=== PATIENT | female | born 1960 | race American Indian/Alaskan Native ===

== ENCOUNTER 2017-01-09 17:40 | Emergency (ER) | payer MEDICAID ==
--- NOTE | 2017-01-09 21:35 | Emergency Department Report ---
ED General Adult HPI - General Chief complaint: High BP Stated complaint: ELEVATED BP/HEADACHE/DIZZINESS Time Seen by Provider: 01/09/17 21:24 Source: patient Mode of arrival: Ambulatory Limitations: No Limitations - History of Present Illness Initial comments: This is a 56-year-old female. She is previously unknown to me. She has follow- up on Saturday with an outpatient primary care doctor. She reports a past medical history of hypertension/elevated blood pressure. Has been off of her medications for years. Doesn't recall what medication she was on. She has also seen cardiology in the past, Dr. Almodovar Patient presents to the ER complaining of intermittent nasal bleeding, intermittent headaches, intermittent dizziness, and hypertension. Symptoms have been present for the past month. The headaches are throbbing. They are intermittent. They are not sudden or thunderclap in nature. They have been going on for "quite a while." There is no neck pain, there is no neck trauma, there is no recent chiropractic manipulation. Patient also describes intermittent black spots in her eyes, which have since resolved. She also described intermittent nasal bleeding, which is not related to trauma or cocaine use. She came in today because she went to an outpatient pharmacy, was found to have elevated blood pressure, and was sent to the ER for further use. She has no chest pain or shortness of breath. She has no ataxia. She has no extremity weakness. She has no extremity numbness. -: Gradual Location: head Radiation: non-radiation Severity scale (0 -10): 4 Consistency: intermittent Improves with: none Worsens with: none Associated Symptoms: headaches. denies: confusion, chest pain, cough, diaphoresis, fever/chills, loss of appetite, malaise, nausea/vomiting, rash, shortness of breath, syncope, weakness - Related Data Previous Rx's Medication Instructions Recorded Last Taken Type amLODIPine [Norvasc] 5 mg PO DAILY #30 tab 01/10/17 Unknown Rx Allergies Allergy/AdvReac Type Severity Reaction Status Date / Time No Known Allergies Allergy Unverified 01/09/17 18:26 ED Review of Systems ROS: Stated complaint: ELEVATED BP/HEADACHE/DIZZINESS Other details as noted in HPI Constitutional: denies: fever Eyes: denies: eye discharge ENT: epistaxis Respiratory: see HPI. denies: cough, shortness of breath Cardiovascular: denies: chest pain Gastrointestinal: denies: abdominal pain Genitourinary: as per HPI Musculoskeletal: as per HPI Skin: as per HPI Neurological: headache. denies: abnormal gait Psychiatric: as per HPI ED Past Medical Hx - Medications Home Medications: Home Medications Medication Instructions Recorded Confirmed Last Taken Type amLODIPine [Norvasc] 5 mg PO DAILY #30 tab 01/10/17 Unknown Rx ED Physical Exam - General Limitations: No Limitations General appearance: alert, in no apparent distress - Head Head exam: Present: atraumatic, normocephalic - Eye Eye exam: Present: normal appearance, PERRL, EOMI. Absent: nystagmus - ENT ENT exam: Present: normal exam, normal orophraynx, mucous membranes moist, normal external ear exam, other (no obvious bleeding or lesions noted intranasally. Negative nasal septal hematoma.) - Neck Neck exam: Present: normal inspection, full ROM. Absent: tenderness, meningismus - Respiratory Respiratory exam: Present: normal lung sounds bilaterally. Absent: respiratory distress, wheezes, rales, rhonchi, stridor, chest wall tenderness - Cardiovascular Cardiovascular Exam: Present: regular rate, normal rhythm, normal heart sounds. Absent: bradycardia, tachycardia, irregular rhythm, systolic murmur, diastolic murmur, rubs, gallop - GI/Abdominal GI/Abdominal exam: Present: soft, normal bowel sounds. Absent: distended, tenderness, guarding, rebound, rigid, pulsatile mass - Extremities Exam Extremities exam: Present: normal inspection, full ROM, normal capillary refill. Absent: tenderness, pedal edema, joint swelling, calf tenderness - Back Exam Back exam: Present: normal inspection, full ROM. Absent: tenderness, CVA tenderness (R), CVA tenderness (L), muscle spasm, paraspinal tenderness, vertebral tenderness - Neurological Exam Neurological exam: Present: alert, oriented X3, normal gait (normal gait. Normal tandem gait. No past pointing. Normal [id number]. Negative Romberg.) , other (Extraocular movements intact. Tongue midline. No facial droop. Facial sensation intact to light touch in the V1, V2, V3 distribution bilaterally. 5 and 5 strength in 4 extremities.. Sensation is intact to light touch in 4 extremities.). Absent: motor sensory deficit - Psychiatric Psychiatric exam: Present: normal affect, normal mood - Skin Skin exam: Present: warm, dry, intact, normal color. Absent: rash ED Course Vital Signs 01/09/17 01/09/17 01/09/17 18:26 21:22 22:00 Temperature 98.8 F Pulse Rate 98 H 96 H 94 H Respiratory 20 18 18 Rate Blood Pressure 190/129 Blood Pressure 179/103 172/100 [Left] O2 Sat by Pulse 100 100 100 Oximetry 01/09/17 01/10/17 01/10/17 22:40 00:00 00:47 Temperature Pulse Rate 92 H 91 H Respiratory 18 16 Rate Blood Pressure 198/102 Blood Pressure 195/107 [Left] O2 Sat by Pulse 100 Oximetry 01/10/17 01/10/17 01/10/17 01:00 01:19 01:20 Temperature Pulse Rate 92 H 90 90 Respiratory 18 18 18 Rate Blood Pressure 171/94 Blood Pressure 190/116 176/99 176/99 [Left] O2 Sat by Pulse 99 99 100 Oximetry 01/10/17 01/10/17 01/10/17 01:30 02:00 02:30 Temperature Pulse Rate 91 H 90 90 Respiratory 18 Rate Blood Pressure 164/93 164/93 Blood Pressure 156/83 [Left] O2 Sat by Pulse 100 Oximetry 01/10/17 01/10/17 02:31 03:00 Temperature Pulse Rate 90 90 Respiratory 18 16 Rate Blood Pressure Blood Pressure 147/86 148/84 [Left] O2 Sat by Pulse 100 99 Oximetry - Reevaluation(s) Reevaluation #1: 01/09/17 21:49 Differential diagnosis: Noncompliance with medication, uncontrolled hypertension , hypertensive retinopathy, arterial insufficiency Assessment and plan: 56-year-old female with resolved nasal bleeding, nonspecific headache for the past month, noncompliant with blood pressure medication, with resolved headache, nasal bleeding, and black spots in the eye. She complained of intermittent dizziness, which she describes as a sensation of feeling "woozy." She has a GCS of 15, with an NIH score of 0, and has a benign and normal neurologic exam, including a complete lack of cerebellar/posterior circulation signs. In terms of visual acuity, the patient is able to read at a close distance, finger count, has color perception, and has no obvious visual field deficits. Currently her blood pressure is 179/103. She does not have a headache at this time. She is follow-up with her primary care doctor on Saturday. I'm reluctant to further decrease her blood pressure at this time, given that it is most likely chronically elevated, and I would not want to disrupt her autoregulation curve. While I highly doubt acute or occult arterial disease, given her poor compliance with blood pressure medication and her nonspecific symptoms, we will obtain a CT scan of the head, and a CT angiogram of the head and neck. She does have follow-up on Saturday with a primary care doctor, so her laboratory studies and imaging are unremarkable, I would feel comfortable discharging her to follow up with a primary care doctor. Reevaluation #2: 01/10/17 00:[address] scan of the brain demonstrates old lacunar infarct. 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 The neck measures 4 mm in diameter. No impending rupture as on CT. Patient is resting comfortably. Again, her headache does not clinically sound consistent with subarachnoid hemorrhage. Her blood pressure is somewhat elevated. The images were transmitted to [facility], and I discussed the case with the specialists, Dr. Coyne. He recommends a goal discharge of 160/104 blood pressure, recommends the patient follow up next week in the neuro endovascular clinic. This was relayed to the patient. He indicates that any antihypertensive agent would be appropriate at this time. Reevaluation #3: 01/10/17 02:46 patient has been observed in the ER for a prolonged period of time. Her blood pressure is improved. repeat neuro exam unchanged and unremarkable. she will be discharged with instructions to follow up with outpatient neuro endovascular, primary care. I will empirically start her on amlodipine. The importance of close outpatient follow-up was emphasized to the patient. ED Medical Decision Making - Lab Data Result diagrams: 01/09/17 21:51 01/09/17 21:51 Vital Signs 01/09/17 01/09/17 18:26 21:22 Temperature 98.8 F Pulse Rate 98 H 96 H Respiratory 20 18 Rate Blood Pressure 190/129 Blood Pressure 179/103 [Left] O2 Sat by Pulse 100 100 Oximetry - EKG Data 01/09/17 21:52 Normal sinus, 83 bpm, normal intervals, normal axis, poor R-wave progression, abnormal EKG, not morphologically consistent with STEMI, there is no prior EKG available for comparison. - Radiology Data Radiology results: report reviewed, image reviewed Critical care attestation.: If time is entered above; I have spent that time in minutes in the direct care of this critically ill patient, excluding procedure time. ED Disposition Clinical Impression: Headache Disposition: DISCHARGED TO HOME OR SELFCARE Is pt being admited?: No Does the pt Need Aspirin: No Condition: Stable Instructions: Hypertension (ED) Additional Instructions: Take the blood pressure medication as directed. Follow up with the [place] neuro endovascular clinic within the next week. The phone number is [phone]. I have discussed her case with the specialist, Dr. Coyne. Take the blood pressure medication as directed. Return to the ER right away with sudden or thunderclap headache, neck pain, neck stiffness, chest pain, shortness of breath, extremity weakness, extremity numbness. Prescriptions: amLODIPine [Norvasc] 5 mg PO DAILY #30 tab Referrals: CELESTE ANDERSON MD [Primary Care Provider] - 3-5 Days
[2017-01-09] MEDS ORDERED: NACL 0.9% 1000 ML 1,000 ML IV ONE (21:48)
[2017-01-09 22:00] LABS: Mean Corpuscular HGB Conc 30 % (30-34); Mean Corpuscular Volume 72 fl (79-97); Platelet Count 267 K/mm3 (140-440); Red Blood Count 4.87 M/mm3 (3.65-5.03); Red Cell Distribution Width 19.3 % (13.2-15.2)
--- NOTE | 2017-01-09 22:02 | Cat Scan Report ---
FINAL REPORT PROCEDURE: CT HEAD/BRAIN WO CON TECHNIQUE: Computerized tomography of the head was performed without contrast material. HISTORY: headache htn COMPARISON: No prior studies are available for comparison. FINDINGS: Skull and scalp: Normal. Paranasal sinuses: Normal. Ventricles and subarachnoid spaces: Normal. Cerebrum: No evidence of hemorrhage, acute infarction or mass. There is an old lacunar infarct defect in the anterior limb of the left internal capsule. Cerebellum and brainstem: No evidence of hemorrhage, acute infarction or mass. Vasculature: Normal. Comments: None. IMPRESSION: There is no acute intracranial abnormality including hemorrhage, edema, mass, mass effect or midline shift. There is an old lacunar infarct defect in the anterior limb of the left internal capsule.
[2017-01-09 22:04] LABS: Hematocrit 34.8 % (30.3-42.9); Hemoglobin 10.5 gm/dl (10.1-14.3); Mean Corpuscular Hemoglobin 22 pg (28-32)
[2017-01-09 22:24] LABS: Anion Gap 19 mmol/L; BUN/Creatinine Ratio 14.28; Blood Urea Nitrogen 10 mg/dL (7-17); Calcium 9.2 mg/dL (8.4-10.2); Carbon Dioxide 25 mmol/L (22-30); Chloride 100.2 mmol/L (98-107); Glucose 90 mg/dL (65-100); Sodium 140 mmol/L (137-145)
[2017-01-09 22:49] LABS: Bilirubin,Urine NEG (Negative); Blood,Urine NEG (Negative); Ketones,Urine NEG (Negative); Leukocyte Esterase,Urine SM (Negative); Mucus,Urine 3+ /HPF; Nitrite,Urine NEG (Negative); Urobilinogen,Urine < 2.0 mg/dL (<2.0)
--- NOTE | 2017-01-10 00:10 | Cat Scan Report ---
FINAL REPORT PROCEDURE: CT ANGIO HEAD TECHNIQUE: Computerized tomographic angiography of the head was performed after the IV injection of iodinated nonionic contrast including image processing. The image data was postprocessed using 2-dimensional multiplanar reformatted (MPR) and 3-dimensional (MIP and/or volume rendered) techniques. HISTORY: shaw htn COMPARISON: CT of the head 01/09/2017 FINDINGS: There is an aneurysm of the cavernous portion of the left internal carotid artery. This measures 12 millimeters in diameter. The neck measures 4 millimeters in diameter. Intracranial arteries are otherwise unremarkable. The middle and anterior cerebral artery branches are patent and normal in caliber. The anterior communicating artery is patent. Vertebral arteries are patent and normal in caliber. Basilar artery is small in caliber but patent. The posterior cerebral arteries are primarily supplied by internal carotid arteries. This is a normal variation. The dural sinuses are patent. There is no intracranial arterial stenosis or thrombosis or dissection. There is no vascular malformation. 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 This measures 12 millimeters in diameter. The neck measures 4 millimeters in diameter. There is no evidence of thrombosis or rupture. Remainder of the examination is unremarkable.
[2017-01-10] MEDS ORDERED: APRESOLINE IV ONE (00:41)
[2017-01-10] MEDS: APRESOLINE IV PRN ×3 (01:00→02:30)
--- NOTE | 2017-01-10 01:07 | Cat Scan Report ---
FINAL REPORT PROCEDURE: CT ANGIO NECK TECHNIQUE: Computerized tomographic angiography of the neck was performed after the IV injection of iodinated nonionic contrast including image processing. The image data was postprocessed using 2-dimensional multiplanar reformatted (MPR) and 3-dimensional (MIP and/or volume rendered) techniques. HISTORY: shaw htn COMPARISON: No prior studies are available for comparison. Note: Assessment of carotid artery stenosis is based on measurement of the distal internal carotid artery diameter as the denominator for stenosis calculations and the [place] Symptomatic Carotid Endarterectomy Trial (NASCET) stenosis criteria . CPT 3100F FINDINGS: Sinuses: Normal . Non vascular cervical structures: No significant abnormality . Aortic arch: Normal . Right carotid artery: There is calcified plaque at the right carotid bulb. There is no stenosis.. Left carotid artery: Normal . Vertebral arteries: Normal . There is an incidental 3 millimeter hypodense nodule or cyst the left thyroid gland. IMPRESSION: There is no carotid stenosis, thrombosis or dissection. The vertebral arteries are patent and normal in caliber.
[2017-01-10 04:37] VITALS: BP 148/84
== END 2017-01-10 03:10 | disposition home or self-care (01) ==
LOC: ED 17:40
DX: R51 Headache (principal)
CPT/HCPCS: 36415; 70450; 70496; 70498; 80048; 81001; 85027; 93005; 93010; 96361; 96374; 96376; 99284; J0360; J7030; Q9967

== ENCOUNTER 2018-07-02 15:57 | Emergency (ER) | payer SELFPAY ==
[2018-07-02] MEDS ORDERED: CATAPRES PO ONE (16:50)
--- NOTE | 2018-07-02 16:50 | Emergency Department Report ---
ED General Adult HPI - General Chief complaint: High BP Stated complaint: BP CHECK Time Seen by Provider: 07/02/18 16:34 Source: patient Mode of arrival: Ambulatory Limitations: No Limitations - History of Present Illness Initial comments: Patient is a 58-year-old female past medical history hypertension been off of her medications roughly 1 month who is here for blood pressure control. Patient states he has a minor headache this morning with some nausea which is resolved currently. Patient is has a history of taking lisinopril 20 mg daily. Patient states that she has no chest pain shortness of breath or focal neurological deficit at this time. - Related Data Previous Rx's Medication Instructions Recorded Last Taken Type amLODIPine [Norvasc] 5 mg PO DAILY #30 tab 01/10/17 Unknown Rx Lisinopril [Zestril TAB] 20 mg PO QDAY #30 tablet 07/02/18 Unknown Rx Allergies Allergy/AdvReac Type Severity Reaction Status Date / Time No Known Allergies Allergy Unverified 01/09/17 18:26 ED Review of Systems ROS: Stated complaint: BP CHECK Other details as noted in HPI Comment: All other systems reviewed and negative ED Past Medical Hx - Past Medical History Hx Hypertension: Yes - Social History Smoking Status: Never Smoker Substance Use Type: None - Medications Home Medications: Home Medications Medication Instructions Recorded Confirmed Last Taken Type amLODIPine [Norvasc] 5 mg PO DAILY #30 tab 01/10/17 Unknown Rx Lisinopril [Zestril TAB] 20 mg PO QDAY #30 tablet 07/02/18 Unknown Rx ED Physical Exam - General Limitations: No Limitations General appearance: alert, in no apparent distress - Head Head exam: Present: atraumatic, normocephalic - Eye Eye exam: Present: normal appearance - ENT ENT exam: Present: mucous membranes moist - Neck Neck exam: Present: normal inspection - Respiratory Respiratory exam: Present: normal lung sounds bilaterally. Absent: respiratory distress - Cardiovascular Cardiovascular Exam: Present: regular rate, normal rhythm. Absent: systolic murmur, diastolic murmur, rubs, gallop - GI/Abdominal GI/Abdominal exam: Present: soft, normal bowel sounds - Extremities Exam Extremities exam: Present: normal inspection - Back Exam Back exam: Present: normal inspection - Neurological Exam Neurological exam: Present: alert, oriented X3 - Psychiatric Psychiatric exam: Present: normal affect, normal mood - Skin Skin exam: Present: warm, dry, intact, normal color. Absent: rash ED Course Vital Signs 07/02/18 16:01 Temperature 98.1 F Pulse Rate 89 Respiratory 16 Rate Blood Pressure 215/114 O2 Sat by Pulse 98 Oximetry ED Medical Decision Making - Medical Decision Making Patient will be given Catapres be discharged home Critical care attestation.: If time is entered above; I have spent that time in minutes in the direct care of this critically ill patient, excluding procedure time. ED Disposition Clinical Impression: Hypertensive urgency Disposition: - TO HOME OR SELFCARE Is pt being admited?: No Does the pt Need Aspirin: No Condition: Stable Instructions: Hypertension (ED) Prescriptions: Lisinopril [Zestril TAB] 20 mg PO QDAY #30 tablet Referrals: PRIMARY CARE, [Primary Care Provider] - 3-5 Days
[2018-07-02 17:25] VITALS: BP 167/95
== END 2018-07-02 17:27 | disposition home or self-care (01) ==
LOC: ED 15:57
DX: I16.0 Hypertensive urgency (principal)
CPT/HCPCS: 99282

== ENCOUNTER 2019-07-15 15:06 | Emergency (ER) | payer OTHER ==
--- NOTE | 2019-07-15 15:23 | Event Note ---
ED Screening Note Date of service: 07/15/19 Time: 15:20 ED Screening Note: This is a 59 y.o. F. that presents to the ER with nosebleed, elevated blood pressure, and dizziness. PMH of HTN, aneurysm Patient states she ran out of medication 8 months. This initial assessment/diagnostic orders/clinical plan/treatment(s) is/are subject to change based on patients health status, clinical progression and re- assessment by fellow clinical providers in the ED. Further treatment and workup at subsequent clinical providers discretion. Patient/guardian urged not to elope from the ED as their condition may be serious if not clinically assessed and managed. Initial orders include: Labs
[2019-07-15 15:49] LABS: Basophils % (Auto) 0.5 % (0.0-1.8); Eosinophils # (Auto) 0.1 K/mm3 (0.0-0.4); Eosinophils % (Auto) 1.6 % (0.0-4.3); Hematocrit 43.5 % (30.3-42.9); Hemoglobin 14.1 gm/dl (10.1-14.3); Lymphocytes # (Auto) 2.2 K/mm3 (1.2-5.4); Lymphocytes % (Auto) 49.2 % (13.4-35.0); Mean Corpuscular HGB Conc 32 % (30-34); Mean Corpuscular Volume 86 fl (79-97); Monocytes # (Auto) 0.4 K/mm3 (0.0-0.8); Monocytes % (Auto) 8.9 % (0.0-7.3); Platelet Count 203 K/mm3 (140-440); Red Blood Count 5.06 M/mm3 (3.65-5.03); Red Cell Distribution Width 14.3 % (13.2-15.2)
[2019-07-15 16:01] LABS: BUN/Creatinine Ratio 10; Blood Urea Nitrogen 7 mg/dL (7-17); Calcium 9.3 mg/dL (8.4-10.2); Hemolysis Index 2
[2019-07-15 17:45] LABS: Bilirubin,Urine NEG (Negative); Blood,Urine NEG (Negative); Color,Urine Yellow (Yellow); Mucus,Urine FEW /HPF; Protein,Urine <15 mg/dL mg/dL (Negative)
[2019-07-15] MEDS ORDERED: CATAPRES PO ONE ×2 (18:07→18:16)
--- NOTE | 2019-07-15 18:08 | Emergency Department Report ---
ED General Adult HPI - General Chief complaint: Nosebleed Stated complaint: HBP/NOSE BLEED/DIZZY Time Seen by Provider: 07/15/19 15:19 Source: patient Mode of arrival: Ambulatory Limitations: No Limitations - History of Present Illness Initial comments: This is a 59-year-old female who presents to ED complaining of leftshow nosebleed that started around 5 AM this intermittently today the strain not heavy last 7 PM.. Patient states that over the weekend she tripped to [place] and was found face and return on Saturday. Patient states yesterday she went to work this morning started bleeding. Patient states that she has number to continue the pressure medication for wall because she ran out of her blood pressure medication. She denies chest pain, shortness of breath, fever, dizziness or any other problems. Chest denies a recent illness, cold, upper respiratory infection. Patient states her last nosebleed was about 10 years ago. - Related Data Previous Rx's Medication Instructions Recorded Last Taken Type amLODIPine [Norvasc] 5 mg PO DAILY #30 tab 01/10/17 Unknown Rx Lisinopril [Zestril TAB] 20 mg PO QDAY #30 tablet 07/02/18 Unknown Rx Labetalol [Labetalol 100mg TAB] 100 mg PO BID #30 tablet 07/15/19 Unknown Rx Allergies Allergy/AdvReac Type Severity Reaction Status Date / Time amlodipine [From Norvasc] Allergy Unknown Verified 07/15/19 15:22 lisinopril Allergy Unknown Verified 07/15/19 15:22 ED Review of Systems ROS: Stated complaint: HBP/NOSE BLEED/DIZZY Other details as noted in HPI Comment: All other systems reviewed and negative ED Past Medical Hx - Past Medical History Previous Medical History?: Yes Hx Hypertension: Yes Additional medical history: [id number] - Surgical History Past Surgical History?: No - Social History Smoking Status: Never Smoker Substance Use Type: None - Medications Home Medications: Home Medications Medication Instructions Recorded Confirmed Last Taken Type amLODIPine [Norvasc] 5 mg PO DAILY #30 tab 01/10/17 07/15/19 Unknown Rx Lisinopril [Zestril TAB] 20 mg PO QDAY #30 tablet 07/02/18 07/15/19 Unknown Rx Labetalol [Labetalol 100mg TAB] 100 mg PO BID #30 tablet 07/15/19 Unknown Rx ED Physical Exam - General Limitations: No Limitations General appearance: alert, in no apparent distress - Head Head exam: Present: atraumatic, normocephalic - Eye Eye exam: Present: normal appearance - ENT ENT exam: Present: normal exam, mucous membranes moist - Expanded ENT Exam Expanded Mouth exam: Present: normal external inspection Teeth exam: Present: normal inspection Throat exam: Positive: normal inspection - Neck Neck exam: Present: normal inspection - Respiratory Respiratory exam: Present: normal lung sounds bilaterally. Absent: respiratory distress - Cardiovascular Cardiovascular Exam: Present: regular rate, normal rhythm. Absent: systolic murmur, diastolic murmur, rubs, gallop - GI/Abdominal GI/Abdominal exam: Present: soft, normal bowel sounds - Extremities Exam Extremities exam: Present: normal inspection - Back Exam Back exam: Present: normal inspection - Neurological Exam Neurological exam: Present: alert, oriented X3 - Psychiatric Psychiatric exam: Present: normal affect, normal mood - Skin Skin exam: Present: warm, dry, intact, normal color. Absent: rash ED Course Vital Signs 07/15/19 07/15/19 07/15/19 15:20 18:15 18:18 Temperature 98.2 F Pulse Rate 94 H 71 71 Respiratory 18 Rate Blood Pressure 184/104 180/120 182/120 O2 Sat by Pulse 99 Oximetry ED Medical Decision Making - Lab Data Result diagrams: 07/15/19 15:31 07/15/19 15:31 - Radiology Data Radiology results: report reviewed, image reviewed TECHNIQUE: All CT scans at this location are performed using the following dose modulation technique: Automated exposure control. CONTRAST: None. COMPARISON: CT brain 01/09/2017. FINDINGS: The ventricular system is appropriate in size and configuration without midline shift. There is a suspected lesion at the left cavernous sinus extending into the sella. This finding was present previously but appears more prominent. Imaged portions of the paranasal sinuses are clear. IMPRESSION: 1. Negative for acute intracranial abnormality. 2. Possible lesion left cavernous sinus/sella. MRI pre and post gadolinium is recommended for further evaluation. Signer Name: Adebayo Wang MD Signed: 07/15/2019 8:18 PM Workstation Name: [id number] Transcribed By: ES Dictated By: Adebayo Wang MD Electronically Authenticated By: Adebayo Wang MD Signed Date/Time: 07/15/192017 - Medical Decision Making 59-year-old female presents for SHORT HYPERTENSION WELL LEFT NOSTRIL BLEED TO HAPPEN TODAY. UPON EXAMINATION PATIENT HAD NO BLEEDING OR ANY EPISODE IN THE ED. ALL LABS WITHIN NORMAL LIMITS. CT SCAN SHOWS NO ACUTE FINDINGS. INCIDENTAL FINDINGS DISCUSSED WITH PATIENT AND TOLD TO FOLLOW UP WITH THE NEUROLOGIST. Also discussed the patient will follow up with her primary care physician to manage her blood pressure I discussed the patient she'll need an outpatient MRI and follow up with the primary care doctor regarding this. Patient is in no acute distress she is laying comfortably in the ED bed throughout the ED stay Critical care attestation.: If time is entered above; I have spent that time in minutes in the direct care of this critically ill patient, excluding procedure time. ED Disposition Clinical Impression: Acute anterior epistaxis, Uncontrolled hypertension Disposition: - TO HOME OR SELFCARE Is pt being admited?: No Does the pt Need Aspirin: No Condition: Stable Instructions: Hypertension (ED), Epistaxis (ED) Additional Instructions: Make sure to follow up with the primary care physician as discussed. Take all your medications as you've been prescribed. Start taking her blood pressure as prescribed. Patient follow-up with a primary care doctor to modify change or 2 blood pressure medication. Get a humidifier use at home If you have any worsening symptoms or develop new symptoms please return to ED immediately.. Prescriptions: Labetalol [Labetalol 100mg TAB] 100 mg PO BID #30 tablet Referrals: FRANNIE BYRD MD [Primary Care Provider] - 3-5 Days Forms: Accompanied Note, Work/School Release Form(ED) Time of Disposition: 20:59
[2019-07-15 18:25] LABS: Partial Thromboplastin Time 26.6 Sec. (24.2-36.6)
[2019-07-15 18:31] LABS: INR 1.02 (0.87-1.13)
--- NOTE | 2019-07-15 20:23 | Cat Scan Report ---
CT head/brain wo con INDICATION: nose bleed/shaw. TECHNIQUE: All CT scans at this location are performed using the following dose modulation technique: Automated exposure control. CONTRAST: None. COMPARISON: CT brain 01/09/2017. FINDINGS: The ventricular system is appropriate in size and configuration without midline shift. Ther e is a suspected lesion at the left cavernous sinus extending into the sella. This finding was presen t previously but appears more prominent. Imaged portions of the paranasal sinuses are clear. IMPRESSION: 1. Negative for acute intracranial abnormality. 2. Possible lesion left cavernous sinus/sella. MRI pre and post gadolinium is recommended for further evaluation. Signer Name: Adebayo Wang MD Signed: 07/15/2019 8:18 PM Workstation Name: [id number]
[2019-07-15 21:30] VITALS: BP 151/100
== END 2019-07-15 21:28 | disposition home or self-care (01) ==
LOC: ED 15:06
DX: R04.0 Epistaxis (principal); R42 Dizziness and giddiness; I10 Essential (primary) hypertension; Z88.8 Allergy status to other drugs, medicaments and biological substances; Z98.890 Other specified postprocedural states
CPT/HCPCS: 36415; 70450; 80048; 81001; 85025; 85610; 85730

== ENCOUNTER 2019-08-09 12:24 | Emergency (ER) | payer OTHER ==
--- NOTE | 2019-08-09 12:37 | Event Note ---
ED Screening Note Date of service: 08/09/19 Time: 12:34 ED Screening Note: 59 y o f presents with left sided flank pain denies f/n/v/d This initial assessment/diagnostic orders/clinical plan/treatment(s) is/are subject to change based on patients health status, clinical progression and re-assessment by fellow clinical providers in the ED. Further treatment and workup at subsequent clinical providers discretion. Patient/guardian urged not to elope from the ED as their condition may be serious if not clinically assessed and managed. Initial orders include: ua ACC eval
[2019-08-09 13:45] LABS: Bilirubin,Urine NEG (Negative); Blood,Urine SM (Negative); Color,Urine Yellow (Yellow); Mucus,Urine FEW /HPF; Protein,Urine <15 mg/dL mg/dL (Negative); Urobilinogen,Urine < 2.0 mg/dL (<2.0); WBC,Urine < 1.0 /HPF (0.0-6.0)
--- NOTE | 2019-08-09 14:05 | Emergency Department Report ---
ED General Adult HPI - General Chief complaint: Abdominal Pain Stated complaint: LOWER LFT SIDE/SHARP PAIN/BACK Time Seen by Provider: 08/09/19 12:33 Source: patient Mode of arrival: Ambulatory Limitations: No Limitations - History of Present Illness Initial comments: Patient is a 59-year-old who presents to emergency room with complaints of left lower back pain and left flank pain that began 4 days ago. she denies any nausea, vomiting, diarrhea, fever, urinary symptoms, fall, injury, weight loss. She denies any numbness or weakness or bowel or bladder incontinence. Denies any history of kidney stones. States she had a normal bowel movement this morning. she states she has had a pain similar to this in the past when she slept wrong and woke up with it. Past medical history of high blood pressure and did not take her medication today. - Related Data Previous Rx's Medication Instructions Recorded Last Taken Type amLODIPine [Norvasc] 5 mg PO DAILY #30 tab 01/10/17 Unknown Rx Lisinopril [Zestril TAB] 20 mg PO QDAY #30 tablet 07/02/18 Unknown Rx Labetalol [Labetalol 100mg TAB] 100 mg PO BID #30 tablet 07/15/19 Unknown Rx Baclofen [Lioresal] 10 mg PO QHS PRN #7 tab 08/09/19 Unknown Rx Ibuprofen [Motrin 600 MG tab] 600 mg PO Q8H PRN #14 tablet 08/09/19 Unknown Rx Allergies Allergy/AdvReac Type Severity Reaction Status Date / Time amlodipine [From Norvasc] Allergy Unknown Verified 07/15/19 15:22 lisinopril Allergy Unknown Verified 07/15/19 15:22 ED Review of Systems ROS: Stated complaint: LOWER LFT SIDE/SHARP PAIN/BACK Other details as noted in HPI Comment: All other systems reviewed and negative ED Past Medical Hx - Past Medical History Previous Medical History?: Yes Hx Hypertension: Yes Hx CVA: Yes Additional medical history: Aneusrym-2017 - Surgical History Past Surgical History?: No - Social History Smoking Status: Never Smoker Substance Use Type: None - Medications Home Medications: Home Medications Medication Instructions Recorded Confirmed Last Taken Type amLODIPine [Norvasc] 5 mg PO DAILY #30 tab 01/10/17 07/15/19 Unknown Rx Lisinopril [Zestril TAB] 20 mg PO QDAY #30 tablet 07/02/18 07/15/19 Unknown Rx Labetalol [Labetalol 100mg TAB] 100 mg PO BID #30 tablet 07/15/19 Unknown Rx Baclofen [Lioresal] 10 mg PO QHS PRN #7 tab 08/09/19 Unknown Rx Ibuprofen [Motrin 600 MG tab] 600 mg PO Q8H PRN #14 tablet 08/09/19 Unknown Rx ED Physical Exam - General Limitations: No Limitations General appearance: alert, in no apparent distress - Head Head exam: Present: atraumatic, normocephalic - Eye Eye exam: Present: normal appearance - ENT ENT exam: Present: mucous membranes moist - Neck Neck exam: Present: normal inspection, full ROM. Absent: tenderness - Respiratory Respiratory exam: Present: normal lung sounds bilaterally. Absent: respiratory distress, wheezes, rales, rhonchi, stridor, chest wall tenderness, accessory muscle use, decreased breath sounds, prolonged expiratory - Cardiovascular Cardiovascular Exam: Present: regular rate, normal rhythm, normal heart sounds. Absent: systolic murmur, diastolic murmur, rubs, gallop - GI/Abdominal GI/Abdominal exam: Present: soft, normal bowel sounds. Absent: distended, tenderness, guarding, rebound, rigid - Back Exam Back exam: Present: normal inspection, full ROM, paraspinal tenderness (mild left sided L-spine paraspinal TTP, no midline C-spine, T-spine, or L-spine tenderness, no step offs, no deformities). Absent: CVA tenderness (R), CVA tenderness (L), vertebral tenderness - Neurological Exam Neurological exam: Present: alert, oriented X3 - Psychiatric Psychiatric exam: Present: normal affect, normal mood - Skin Skin exam: Present: warm, dry, intact ED Course Vital Signs 08/09/19 08/09/19 12:36 14:19 Temperature 98.4 F Pulse Rate 89 69 Respiratory 18 16 Rate Blood Pressure 180/125 Blood Pressure 210/112 [Left] O2 Sat by Pulse 98 Oximetry ED Medical Decision Making - Medical Decision Making Patient is a 59-year-old who presents to emergency room with complaints of left lower back pain and left flank pain that began 4 days ago. she denies any nausea, vomiting, diarrhea, fever, urinary symptoms, fall, injury, weight loss. She denies any numbness or weakness or bowel or bladder incontinence. Denies any history of kidney stones. States she had a normal bowel movement this morning. she states she has had a pain similar to this in the past when she slept wrong and woke up with it. Past medical history of high blood pressure and did not take her medication today. vitals with elevated blood pressure due to patient not taking her blood pressure medication. advised pt to please take her medication as it is prescribed by her primary care doctor, keep a blood pressure log, eat a low sodium diet, and follow up with her primary care doctor. on exam: mild left sided L-spine paraspinal TTP, no midline C-spine, T-spine, or L- spine tenderness, no step offs, no deformities, no abd tenderness on exam, no CVAT. UA is within normal limits. pt given prescription for baclofen and motrin. advised to please take medication as prescribed as needed. discussed not to drive or operate heavy machinery while taking muscle relaxer. may use ice, rest, heating pad, epsom salt bath. follow up with a primary care doctor in the next 2-3 days. return to the emergency room for any new or worsening symptoms or if symptoms not improving. - Differential Diagnosis UTI, arthritis, strain, spondylolisthesis, spondylolysis, nephrolithiasis Critical care attestation.: If time is entered above; I have spent that time in minutes in the direct care of this critically ill patient, excluding procedure time. ED Disposition Clinical Impression: Left-sided low back pain without sciatica Qualifiers: Chronicity: acute Qualified Code(s): M54.5 - Low back pain Disposition: TO HOME OR SELFCARE Is pt being admited?: No Does the pt Need Aspirin: No Condition: Stable Instructions: Muscle Strain (ED) Additional Instructions: please take medication as prescribed as needed. may use ice, rest, heating pad, epsom salt bath. follow up with a primary care doctor in the next 2-3 days. return to the emergency room for any new or worsening symptoms or if symptoms not improving. Prescriptions: Baclofen [Lioresal] 10 mg PO QHS PRN #7 tab PRN Reason: Muscle Spasm Ibuprofen [Motrin 600 MG tab] 600 mg PO Q8H PRN #14 tablet PRN Reason: Pain Referrals: PRIMARY CARE, [Primary Care Provider] - 2-3 Days Time of Disposition: 14:04 Print Language: [place]
[2019-08-09 14:19] VITALS: BP 210/112
== END 2019-08-09 14:21 | disposition home or self-care (01) ==
LOC: ED 12:24
DX: M54.5 Low back pain (principal); R10.9 Unspecified abdominal pain; I10 Essential (primary) hypertension; Z86.73 Personal history of transient ischemic attack (TIA), and cerebral infarction without residual deficits; Z88.8 Allergy status to other drugs, medicaments and biological substances; Z79.899 Other long term (current) drug therapy
CPT/HCPCS: 81001